=== PATIENT | female | born 1975 | race Asian ===

== ENCOUNTER 2024-08-16 22:14 | Emergency (ER) | payer MEDICAID, SELFPAY ==
[2024-08-16 22:39] VITALS: BP 115/76; PULSE 83; RESP 16; TEMP 36.9; O2SAT 99; BMI 23.2
[2024-08-17 02:33] VITALS: BP 118/78; PULSE 76; RESP 18; TEMP 36.7; O2SAT 100
--- NOTE | 2024-08-17 03:38 | ED.EYEPROB ---
HPI - Eye Problem General Chief complaint: Eye Problems Stated complaint: cant open both eyes was removing contacts Time Seen by Provider: 08/17/24 03:29 Source: patient Mode of arrival: ambulatory Limitations: no limitations History of Present Illness ED Provider: Dr. Alberta Pritchett HPI Narrative: Patient comes to the emergency room complaining of eye pain. Patient believes that she scratched her left eye while removing her contact lens. Patient complaining of burning sensation, photophobia, denies discharge, denies visual changes. Patient states that 2 years ago she had a similar episode when she had a corneal scratch. Related Data Previous Rx's ?Medication ?Instructions ?Recorded moxifloxacin 0.5 % eye drops 1 drp ophthalmic (eye) TID 5 days 08/17/24 #3 mL Allergies Allergy/AdvReac Type Severity Reaction Status Date / Time No Known Allergies Allergy Verified 08/16/24 22:46 Review of Systems Review of Systems: Constitutional : No Weight loss, No Fever, No Chills, No Night Sweats, No Fatigue, No Malaise ENT/Mouth : No Hearing loss, No Ear Pain, No Nasal Congestion, No Sinus Pain, No Hoarseness, No sore throat, No Rhinorrhea, No Swallowing Difficulty Eyes: Complaining of left eye burning sensation, foreign body sensation, discomfort Cardiovascular : No Chest Pain, No SOB, No Dyspnea on Exertion, No Orthopnea, No Edema, No Palpitations Respiratory : No Cough, No Sputum, No Wheezing, No Smoke Exposure, No Dyspnea Gastrointestinal : No Nausea, No Vomiting, No Diarrhea, No Constipation, No abdominal Pain, No Hematochezia, No Melena Genitourinary : no irregular bleeding, No Dysuria, No Urinary Frequency, No Hematuria, No Urinary Incontinence, No Urgency, No Flank Pain, No Urinary Flow Changes, No Hesitancy Musculoskeletal : No joint pain, No Myalgias, No Joint Swelling Skin : No Skin Lesions, No rash Neuro : No Weakness, No Numbness, No Paresthesias, No Loss of Consciousness, No Dizziness, No Headache Psych : No Anxiety/Panic, No Depression, No SI/HI/AH/VH, No Social Issues, Heme/Lymph: No Bruising, No Bleeding,No Lymphadenopathy Endocrine : No Polyuria, No Polydipsia, No Temperature Intolerance PMFSH Social History Social History Advance Directives: No Advance Directives Information Provided: Yes Do you have a plan to hurt others: No Plan Physical Exam Vital Signs: Vital Signs: Last Vital Signs Temp 98.1 F 08/17/24 02:33 Pulse 76 08/17/24 02:33 Resp 18 08/17/24 02:33 BP 118/78 08/17/24 02:33 Pulse Ox 100 08/17/24 02:33 O2 Del Method Room Air 08/17/24 02:33 BMI result Body Mass Index 23.2 Const: Other: Appearance: Alert. Oriented X3. No acute distress. Eyes: Pupils equal, round and reactive to light. Left eye has a corneal abrasion, visualized with fluorescein stain and a Wood's lamp, negative Lance sign ENT: Pharynx normal. Patient has bilateral photophobia, Neck: Normal inspection. Neck supple. No lymph nodes noted. No crepitus CVS: Normal heart rate and rhythm. Pulses normal. Normal S1 and S2 Respiratory: No respiratory distress. Breath sounds normal. No Wheezing. No rales Abdomen: Soft and nontender. No rigidity. No distention. Skin: Skin warm and dry. Normal skin color. Normal skin turgor. Extremities: No lower extremity edema. No Lacerations. No Rash Neuro: Oriented X 3. No motor deficit. No sensory deficit. Moving all extremities. No slurred speech. CN 2 through 12 grossly intact Psych: calm, cooperative, normal affect Course Course Course Narrative: I discussed the physical exam with the patient, patient does have a corneal abrasion on the left thigh. Patient wears contact lenses. Patient states that she had significant relief with tetracaine Medical Decision Making Medical Decision Making MDM Narrative: Patient has a corneal abrasion. Patient wears contact lenses. Appropriate antibiotics were sent to the patient's pharmacy. 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 If you have any worsening or new symptoms, please return to the emergency room or call 911 Prescriptions: New moxifloxacin 0.5 % drops 1 drp ophthalmic (eye) TID 5 Days Qty: 3 0RF Print Language: Upper Sorbian
[2024-08-17] MEDS: Fluorescein Sodium STRIP 1 STRIP EYE-BOTH (04:19)
[2024-08-17] MEDS: Tetracaine HCl/PF 0.5% Oph Sol 4 ML DROPS 1 DROP EYE-BOTH (04:19)
[2024-08-17 04:21] VITALS: BP 118/78; PULSE 76; RESP 18; TEMP 36.7; O2SAT 100
== END 2024-08-17 04:23 | disposition home or self-care (01) ==
PROVIDERS: Emergency Provider Emergency Medicine
DX: H18.822 Corneal disorder due to contact lens, left eye (principal); H57.11 Ocular pain, right eye
CPT/HCPCS: 99283